=== PATIENT | male | born 1985 | race African-American/Black ===

== ENCOUNTER 2016-12-03 03:34 | Emergency (ER) | payer MEDICAID, OTHER ==
[~2016-12-03] VITALS: Ht 182.9 cm; Wt 63.0 kg
[2016-12-03 03:38] VITALS: Ht 182.9 cm; Wt 63.0 kg
[2016-12-03] MEDS ORDERED: FAMOTIDINE 20 MG INJ IV STA (05:07)
[2016-12-03] MEDS ORDERED: ONDANSETRON 4 MG INJ IV STA ×2 (05:07→12:56)
[2016-12-03] MEDS ORDERED: morphine 4 MG/ML VIAL IV STA ×2 (05:07→12:56)
[2016-12-03] MEDS ORDERED: SOD CHLORIDE 0.9% 1,000 ML IV STA (05:07)
[2016-12-03 05:40] LABS: ALBUMIN 4.7 g/dl (3.3-4.9)
[2016-12-03 05:41] LABS: POTASSIUM 4.2 mmol/L (3.5-5.1)
[2016-12-03 05:43] LABS: ALBUMIN/GLOBULIN RATIO 1.09; CREATININE 0.87 mg/dl (0.61-1.24)
[2016-12-03 05:44] LABS: CALCIUM 9.9 mg/dl (8.4-10.2)
[2016-12-03 05:47] LABS: BASOPHILS % 0.6 % (0.0-2.0); EOSINOPHILS % 0.4 % (0.0-7.0); HEMATOCRIT 47.1 % (42.0-52.0); HEMOGLOBIN 16.3 g/dl (14.0-18.0); LYMPHOCYTES # 2.4 10^3/ul (0.8-2.9); LYMPHOCYTES % 28.7 % (15.0-51.0); MEAN CORPUSCULAR HEMOGLOBIN 34.2 pg (29.0-33.0); MEAN CORPUSCULAR HGB CONC 34.5 g/dl (32.0-37.0); MEAN CORPUSCULAR VOLUME 99.1 fl (82.0-101.0); MEAN PLATELET VOLUME 9.9 fl (7.4-10.4); MONOCYTE # 0.5 10^3/ul (0.3-0.9); MONOCYTES % 6.5 % (0.0-11.0); NEUTROPHIL # 5.4 10^3/ul (1.6-7.5); NEUTROPHILS % 63.8 % (39.0-77.0); PLATELET COUNT 186 10^3/UL (140-440); RED BLOOD COUNT 4.76 10^6/ul (4.70-6.10); RED CELL DISTRIBUTION WIDTH 13.6 % (11.5-14.5); UNCORRECTED WBC 8.4 10^3/ul (4.8-10.8); WHITE BLOOD COUNT 8.4 10^3/ul (4.8-10.8)
[2016-12-03 05:50] LABS: CONDITION 1
[2016-12-03] MEDS ORDERED: METOCLOPRAMIDE 10 MG INJ IV ONE (06:27)
[2016-12-03] MEDS ORDERED: SOD CHLORIDE 0.9% 1,000 ML IV ONE (06:27)
[2016-12-03 06:30] VITALS: TEMP 98.3
--- NOTE | 2016-12-03 06:32 | RADRPT ---
PROCEDURE: XR Chest. CLINICAL INDICATION: Chest Pain. TECHNIQUE: Portable single view of the chest COMPARISON: None. FINDINGS: The cardiomediastinal silhouette appears within normal limits. There is a slightly spiculated densi ty in the lateral right mid lung which measures 1.8 x 1.8 cm. No other focal lung density is seen. No pleural effusion or overt congestive heart failure is seen. Clips are seen in the region of the right neck. IMPRESSION: Size spiculated right mid lung density which may represent a small area of infiltrate or an area of scarring. Lung nodule is less likely. Comparison with old studies or [id number] month follow-up films to document stability would be suggested. RPTAT: [facility] Physician Shaina Date Time Electronically viewed and signed by Josee Singh Physician on 12/03/2016 06:31 LE/
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
--- NOTE | 2016-12-03 07:56 | RADRPT ---
PROCEDURE: US Abdomen. CLINICAL INDICATION: ruq and epigastric pain with vomiting for 3 days TECHNIQUE: Potts scale and color Doppler imaging of the right upper quadrant COMPARISON: None FINDINGS: The aorta and visualized inferior vena cava are unremarkable in appearance. The liver is homogeneou s in echotexture and no focal liver lesions are seen. The gallbladder is normal in appearance withou t evidence of stones, sludge, or wall thickening. No intra or extrahepatic biliary dilatation is see n. The common bile duct measures 4 mm in maximal dimension. The right kidney measures 11.1 cm. No hydronephrosis or renal calculi are seen. The pancreas is partially obscured by bowel gas. No asci robin is seen. IMPRESSION: Study slightly limited by bowel gas. No definite acute abnormality. RPTAT: [facility] Physician Shaina Date Time Electronically viewed and signed by Josee Singh Physician on 12/03/2016 07:56 JUDITH/
--- NOTE | 2016-12-03 08:14 | RADRPT ---
PROCEDURE: CT Chest without contrast. CLINICAL INDICATION: Lung nodule versus infiltrate seen on chest x-ray. Vomiting and weight loss. TECHNIQUE: Spiral CT images through the chest without contrast. Coronal and sagittal reformatted images were obtained from the axial source images. The total exam CTDI equals 5.67 mGy and the total exam DLP equals 240.64 mGy-cm. One or more of the following dose reduction techniques were used: au tomated exposure control, adjustment of the mA and/or kV according to patient size, or use of iterat mimi reconstruction technique. COMPARISON: Chest x-ray from today FINDINGS: There is a focal area of peribronchial thickening and density extending to the pleural surface later ally in the right lower lobe. The overall area of abnormality measures 2.9 x 2.4 cm. Minimal groun d-glass opacity is seen in the right middle lobe but the lungs are otherwise clear with no focal nod ule or infiltrate. No definite endobronchial lesion is seen. No other area of peribronchial thicke chaitanya is seen. There is no evidence for bronchiectasis or pulmonary fibrosis. Clips are seen in the right neck and there may have been prior right thyroidectomy. Residual thymic tissue is seen. No hilar, mediastinal, or axillary adenopathy is seen. No pleural or pericardial effusion is seen. Li mited imaging of the upper abdomen is unremarkable. No bony lesion is seen. IMPRESSION: Focal area of probable bronchopneumonia in the right lower lobe. Follow-up chest x-ray after treatm ent is suggested. Postoperative changes of the right neck. RPTAT: [facility] Physician Shaina Date Time Electronically viewed and signed by Josee Singh Physician on 12/03/2016 08:14 JUDITH/
[2016-12-03] MEDS ORDERED: LEVOFLOXACIN 750MG/D5W (PMX) 150 ML IVPB ONE (09:00)
[2016-12-03] MEDS ORDERED: AZITHROMYCIN 500MG/NS (PMX) 250 ML IVPB ONE (09:00)
[2016-12-03 09:53] VITALS: BP 116/73; PULSE 86; RESP 16
[2016-12-03] MEDS ORDERED: ONDA4TAB14 PO (10:32)
[2016-12-03] MEDS ORDERED: AZIT500T3 PO (10:32)
== END 2016-12-03 15:42 | disposition home or self-care (01) ==
LOC: E/R 03:34
DX: R11.10 Vomiting, unspecified (principal); R40.2252 Coma scale, best verbal response, oriented, at arrival to emergency department; J18.9 Pneumonia, unspecified organism; J45.909 Unspecified asthma, uncomplicated; F17.210 Nicotine dependence, cigarettes, uncomplicated; R40.2142 Coma scale, eyes open, spontaneous, at arrival to emergency department; R40.2362 Coma scale, best motor response, obeys commands, at arrival to emergency department
CPT/HCPCS: 71010; 71250; 76705; 80053; 83690; 85025; 87040; J0456; J1956; J2270; J2405; J2765; J7030; Z7610; 36415; 96361; 96365; 96366; 96375; 96376